=== PATIENT | female | born 1945 | race Caucasian/White ===

== ENCOUNTER → 2016-06-07 | Outpatient (CLI) | payer MEDICARE ==
--- NOTE | 2016-06-07 13:29 | REP ---
Digital diagnostic unilateral right breast mammography with CAD. History: November 07, 2015 mammography was BIRADS 4 suspicious for microcalcifications projecting in the right lateral breast increased in number from prior study. Comparison is made with July 19, 2014, July 04, 2013, and May 31, 2012 prior mammography. Findings: Heterogenous dense fibroglandular elements are again seen inhibiting the sensitivity of mammography. A grouping of coarse polymorphic microcalcifications again noted laterally in the right mid breast. These are located at approximately 3 o'clock. As previously stated, they are not related to the previous needle biopsy marker clip for which is noted in the upper outer quadrant away from these calcifications. There are one or two more microcalcifications in the grouping and they are still considered suspicious. No mass effect is seen. No other finding. Impression: BIRADS category 4 suspicious right breast imaging. Stereotactic needle biopsy recommended. Progressive microcalcific grouping in the right lateral breast. This mammogram was interpreted with the aid of an FDA-approved computer-aided detection system. The patient states she/he had a clinical breast exam in November 26, 2015. The patient letter being requested is M4 dense . Signed by Donovan Fontana MD 06/07/2016 03:16 P
== END ==
LOC: M RAD 09:25
PROVIDERS: ATTEND Nurse Practitioner Family
DX: R92.8 Other abnormal and inconclusive findings on diagnostic imaging of breast (principal)

== ENCOUNTER → 2016-06-30 | Outpatient (CLI) | payer MEDICARE ==
[~2016-06-30] MED LIST: LIDOCAINE 1% MDV 20ML VIAL As Ordered ONE
--- NOTE | 2016-06-30 16:13 | REP ---
SPECIMEN RADIOGRAPH, RIGHT BREAST: 06/30/2016. Comparison: Biopsy working films right breast vacuum assisted needle biopsy today. Findings: A single image from specimen radiography of the stereotactic vacuum-assisted core biopsy right breast microcalcifications are reviewed. All of the targeted calcifications are seen in a fairly tight grouping on specimen #3 within the specimen eaton. The other five specimens do not show any definite calcifications from this group. Specimen five has one tiny calcification. The sample was sent to pathology for further analysis. Signed by Bill Segura MD 06/30/2016 08:22 P
--- NOTE | 2016-06-30 16:16 | REP ---
POST STEREOTACTIC RIGHT BREAST IMAGES FOR CLIP PLACEMENT: 06/30/2016. Comparison: Stereotactic localization images this date, diagnostic mammogram 06/07/2016 right breast. Findings: These images are status post vacuum-assisted needle biopsy of cluster of calcifications lower outer quadrant right breast. Stereotactic clip is seen and small lucency representing air from the biopsy needle with the entire group of microcalcifications removed in the interval. I do not see significant hematoma locally. Stereotactic clip is immediately adjacent. There is an old stereotactic clip present in the upper outer quadrant with this new one in the lower outer quadrant. The heterogeneous parenchyma of the breast is otherwise unchanged. No other findings. Impression: 1. Status post clip placement lower outer quadrant right breast with complete removal of a cluster of microcalcifications and the stereotactic clip at that site marking the previous location of those calcifications. Followup should be based on the biopsy report. Signed by Bill Segura MD 06/30/2016 08:22 P
--- NOTE | 2016-07-01 17:18 | REP ---
STEREOTACTIC RIGHT BREAST BIOPSY: The procedure was performed under the direct supervision of Dr. Segura. The patient has a history of a grouping of coarse polymorphic microcalcifications laterally in the right mid breast seen on a previous mammogram performed on 06/07/2016. The risks and benefits of the procedure were explained to the patient and informed consent was obtained. A lateral medial approach was utilized. The calcifications were localized using stereotactic mammographic guidance. The skin was prepped and draped in a sterile fashion. 1% lidocaine was used as a local anesthetic. A 10-gauge suction-assisted Mammotome needle was inserted and 6 core biopsy samples were obtained. Specimen radiograph demonstrates the presence of calcifications to be within the specimen. A marker clip was placed at the biopsy site. The patient tolerated the procedure well and there were no immediate complications. After the appropriate amount of monitored convalescence the patient was discharged from the department. Reviewed by KITTY Rivas 07/02/2016 09:36 AEdited and Signed by Bill Segura MD 07/02/2016 04:39 P
== END | disposition home or self-care (01) ==
LOC: M RADPRO 12:00
PROVIDERS: ATTEND Surgery
DX: R92.0 Mammographic microcalcification found on diagnostic imaging of breast (principal); D24.1 Benign neoplasm of right breast

== ENCOUNTER → 2017-01-04 | Outpatient (CLI) | payer MEDICARE ==
--- NOTE | 2017-01-07 07:14 | REPMRS ---
Patient History The patient states she had a clinical breast exam in JULY 2016.Patient is postmenopausal and has history of other cancer at age 53. Family history of breast cancer in maternal aunt. Benign radio exam breast specimen of the right breast, June 30, 2016. Benign stereotatic loc for ea lesion of the right breast, June 30, 2016. Benign stereotactic core biopsy of the right breast, 2007. Digital Mammo Screening Bilat: January 04, 2017 - Exam #: [id number] Bilateral CC and MLO view(s) were taken. Technologist: Malou Gonzales Technologist Prior study comparison: June 07, 2016, right breast digital mammo diagnostic unilateral performed at [facility]. November 17, 2015, right breast digital mammo diagnostic unilateral performed at [facility]. July 19, 2014, digital mammo diagnostic bilateral performed at [facility]. FINDINGS: The breast tissue is heterogeneously dense. This may lower the sensitivity of mammography. There are two needle biopsy marker clips projecting in the right breast. There is a moderate amount of heterogeneously dense fibroglandular tissue which is fairly symmetric. There is no interval development of dominant mass, architectural distortion, or clustered microcalcification typical of malignancy. There has been no change in the appearance of the mammogram from the prior studies. ASSESSMENT: BI-RADS/ACR category 2 mammogram. Benign finding(s). Recommendation Routine screening mammogram of both breasts in 1 year (for women over age 40). This mammogram was interpreted with the aid of an FDA-approved computer-aided dectection system. Electronically Signed By: Casimiro Fontana MD 01/04/17 [id number]
== END ==
LOC: M RAD 11:00
PROVIDERS: ATTEND Surgery
DX: Z12.31 Encounter for screening mammogram for malignant neoplasm of breast (principal); Z78.0 Asymptomatic menopausal state

== ENCOUNTER → 2017-06-20 | Outpatient (REF) | payer MEDICARE | LOC: M SMT 17:22 | DX: Z85.51 Personal history of malignant neoplasm of bladder (principal) | CPT/HCPCS: 88108 ==

== ENCOUNTER → 2018-05-10 | Outpatient (CLI) | payer MEDICARE ==
--- NOTE | 2018-05-10 13:15 | REPMRS ---
Patient History The patient states she had a clinical breast exam in 04/2018. Patient is postmenopausal and has history of other cancer at age 53. Family history of breast cancer in maternal aunt. Benign radio exam breast specimen of the right breast, June 30, 2016. Benign stereotatic loc for ea lesion of the right breast, June 30, 2016. Benign stereotactic core biopsy of the right breast, 2007. Taking estrogen for 3 years. Digital Woman Screen Mammo: May 10, 2018 - Exam #: [id number] Bilateral CC and MLO view(s) were taken. Technologist: Peyton Ronquillo, Technologist Prior study comparison: January 04, 2017, bilateral digital mammo screening bilat, performed at [facility]. June 07, 2016, right breast digital mammo diagnostic unilateral, performed at [facility]. November 07, 2015, bilateral digital mammo screening bilat, performed at [facility]. FINDINGS: The breast tissue is heterogeneously dense. This may lower the sensitivity of mammography. There are two needle biopsy marker clips again noted in the right breast laterally. The previously noted microcalcification grouping seen in the right breast on June 07 2016 is no longer visible. There are scattered coarse calcifications on the left today. There is a moderate amount of heterogeneously dense fibroglandular tissue which is fairly symmetric. There is no interval development of dominant mass, architectural distortion, or clustered microcalcification typical of malignancy. There has been no change in the appearance of the mammogram from the prior studies. 3-D tomosynthesis shows no additional findings. Assessment: BI-RADS/ACR category 2 mammogram. Benign finding(s). Recommendation Routine screening mammogram of both breasts in 1 year (for women over age 40). This patient's Lifetime Breast Cancer RIsk is estimated at 5.6 %. This mammogram was interpreted with the aid of an FDA-approved computer-aided dectection system. Electronically Signed By: Casimiro Fontana MD 05/10/18 [id number]
== END ==
LOC: M WHC 11:23
PROVIDERS: ATTEND Nurse Practitioner Family
DX: Z12.31 Encounter for screening mammogram for malignant neoplasm of breast (principal); R92.1 Mammographic calcification found on diagnostic imaging of breast; Z78.0 Asymptomatic menopausal state; Z85.89 Personal history of malignant neoplasm of other organs and systems; Z86.018 Personal history of other benign neoplasm; Z92.23 Personal history of estrogen therapy

== ENCOUNTER → 2019-06-12 | Outpatient (REF) | payer MEDICARE | LOC: M SMT 19:57 | PROVIDERS: ATTEND Urology | DX: Z85.51 Personal history of malignant neoplasm of bladder (principal) ==

== ENCOUNTER → 2019-06-18 | Outpatient (CLI) | payer MEDICARE ==
--- NOTE | 2019-06-18 12:37 | REPMRS ---
Patient History The patient states she had a clinical breast exam in 2019. Family history of breast cancer in maternal aunt. Benign radio exam breast specimen of the right breast, June 30, 2016. Benign stereotatic loc for ea lesion of the right breast, June 30, 2016. Benign stereotactic core biopsy of the right breast, 2007. Taking estrogen for 3 years. Digital Woman Screen Mammo: June 18, 2019 - Exam #: [id number] Bilateral CC and MLO view(s) were taken. Technologist: Ambreen Ramon, Technologist Prior study comparison: May 10, 2018, bilateral digital woman screen mammo performed at [facility] [place]. January 04, 2017, bilateral digital mammo screening bilat, performed at [facility]. FINDINGS: The breast tissue is heterogeneously dense. This may lower the sensitivity of mammography. There are two needle biopsy marker clips again noted in the right breast laterally. There are coarse benign calcifications again noted on the left. There is a moderate amount of heterogeneously dense fibroglandular tissue which is fairly symmetric. There is no interval development of dominant mass, architectural distortion, or grouped microcalcification typical of malignancy. There has been no change in the appearance of the mammogram from the prior studies. 3-D tomosynthesis shows no additional findings. Assessment: BI-RADS/ACR category 2 mammogram. Benign Findings. Recommendation Routine screening mammogram of both breasts in 1 year (for women over age 40). This patient's Lifetime Breast Cancer RIsk is estimated at 5.2 %. This mammogram was interpreted with the aid of an FDA-approved computer-aided dectection system. Electronically Signed By: Casimiro Fontana MD 06/18/19 [id number]
== END ==
LOC: M WHC 11:00
PROVIDERS: ATTEND Nurse Practitioner Family
DX: Z12.31 Encounter for screening mammogram for malignant neoplasm of breast (principal); Z86.018 Personal history of other benign neoplasm; Z92.23 Personal history of estrogen therapy; R92.1 Mammographic calcification found on diagnostic imaging of breast
CPT/HCPCS: 77063; 77067; G0463

== ENCOUNTER → 2020-08-27 | Outpatient (CLI) | payer MEDICARE ==
--- NOTE | 2020-08-27 15:16 | REPMRS ---
Patient History The patient states she had a clinical breast exam in August 2020. Patient is postmenopausal and has history of bladder cancer at age 53. Family history of breast cancer in maternal aunt. Benign radio exam breast specimen of the right breast, June 30, 2016. Benign stereotatic loc for ea lesion of the right breast, June 30, 2016. Benign stereotactic core biopsy of the right breast, 2007. Took estrogen for 3 years. Patient states no breast complaints. Patient signed MRS history sheet. Digital Woman Screen Mammo: August 27, 2020 - Exam #: [id number] Bilateral CC and MLO view(s) were taken. Technologist: Ashleigh Blanc, Technologist Prior study comparison: June 18, 2019, bilateral digital woman screen mammo performed at [facility]. May 10, 2018, bilateral digital woman screen mammo performed at [facility]. FINDINGS: There are scattered fibroglandular densities. Screening. Digital screening (2D) mammography was performed bilaterally in the CC and MLO projections. Additionally, breast tomosynthesis (3D mammography) was performed bilaterally in the CC and MLO projections. Todays exam was compared to the prior exams(s). By history, the patient has no complaints of a palpable breast abnormality or other significant breast complaints. The breasts are unchanged in size and shape.Once again, dense heterogenous fibroglandular elements are seen bilaterally in a stable appearing pattern but to such a degree that the sensitivity of the mammogram in detecting cancer is decreased. There are no janis-soft tissue densities or spiculated masses. There is no internal architectural distortion. There are no suspicious janis-calcific clusters. Stable benign calcifications are again seen bilaterally. Skin thickening or nipple retraction is not present. IMPRESSION: BI-RADS Category 2- Benign Findings(s). There is no evidence of malignant alteration of the breasts. Followup examination recommended in one year. The Volpara volumetric breast density category is B, there are scattered areas of fibroglandular density. This mammogram was read with the assistance of [employer],an FDA approved computer aided detection system for mammography. The lifetime Tyrer-Cuzick score is 4.8 % Negative x-ray reports should not delay surgical consultation if a dominant or clinically suspicious mass is present. Not all breast cancers can be identified by mammography. Therefore, we recommend that you continue to perform regular breast self-examination and physical examination and then promptly contact your physician of any concerns or changes. Adenosis and dense breasts may obscure an underlying neoplasm. Assessment: BI-RADS/ACR category 2 mammogram. Benign Findings. Recommendation Routine screening mammogram of both breasts in 1 year (for women over age 40). This patient's [facility] Lifetime Breast Cancer Risk is estimated at %. This mammogram was interpreted with the aid of an FDA-approved computer-aided dectection system. Electronically Signed By: Michele Puentes DO 08/27/20 [id number]
== END ==
LOC: M WHC 13:21
PROVIDERS: ATTEND Nurse Practitioner Women's Health
DX: Z12.31 Encounter for screening mammogram for malignant neoplasm of breast (principal); Z78.0 Asymptomatic menopausal state; Z85.51 Personal history of malignant neoplasm of bladder; Z86.018 Personal history of other benign neoplasm; Z92.23 Personal history of estrogen therapy; R92.1 Mammographic calcification found on diagnostic imaging of breast

== ENCOUNTER 2023-02-09 10:33 | Day surgery (SDC) | payer MEDICARE ==
[~2023-02-09] VITALS: Ht 172.7 cm; Wt 85.3 kg
[~2023-02-09 10:33] MED LIST changes: +ATOR1TAB21 PO; +BSS IRRIG/VANCO(10MG)/TOBRA(5MG)/EPINEPH(1:1000-0.5CC)500ML BAG-ORONLY IR ONE; +CALC250T PO; +CARV12.5 PO; +CEFUROXIME 1MG/0.1ML INTRACAMERAL INJ As Ordered ONE; +CYCLOPENTOLATE 1% OPHTH SOLN 2ML BTL OS SCH; +FAMO40TA3 PO; -LIDOCAINE 1% MDV 20ML VIAL As Ordered ONE; +LIDOCAINE 1% SDV 5ML VIAL As Ordered ONE; +LIDOCAINE 3.5 % 1ML OPHTH TOPICAL GEL OU ONE; +LOSA25TA13 PO; +OCUV1CAP4 PO; +OFLOXACIN 0.3 % (OCUFLOX) OPTH SOL 5ML OS ONE; +OMEG12004 PO; +OXYB10TA23 PO; +PHENYLEPHRINE 10% OPHTH SOL 5ML OS PRN; +PHENYLEPHRINE 2.5% OPHTH SOL 2ML OS SCH; +PROVISC 10 MG/ML 0.85ML SYRINGE As Ordered ONE; +SPIR-10 PO; +TIMO1SOL OP; +TROPICAMIDE 1% OPHTH SOLN 15ML OS SCH; +VITA200012 PO; +XALA0.007 OU; +asprin PO
[2023-02-09] MEDS ORDERED: MIDAZOLAM INJ 2MG/2ML VIAL As Ordered ONE (11:12)
[2023-02-09] MEDS ORDERED: fentaNYL 100 MCG/2 ML INJECTION As Ordered ONE (11:12)
[2023-02-09 12:57] VITALS: BP 147/76; TEMP 97.1; O2SAT 100
== END 2023-02-09 13:26 | disposition home or self-care (01) ==
LOC: M SDC 10:33
PROVIDERS: ATTEND Ophthalmology
DX: H25.12 Age-related nuclear cataract, left eye (principal); H40.812 Glaucoma with increased episcleral venous pressure, left eye; I10 Essential (primary) hypertension; E78.5 Hyperlipidemia, unspecified; K21.9 Gastro-esophageal reflux disease without esophagitis; I25.2 Old myocardial infarction; Z79.51 Long term (current) use of inhaled steroids; Z79.82 Long term (current) use of aspirin; Z79.899 Other long term (current) drug therapy
CPT/HCPCS: 66183; 66987; A4649; C1783; J0697; J2250; J3010; V2788